=== PATIENT | male | born 1965 | race Two or more races ===

== ENCOUNTER 2019-07-27 18:35 | Emergency (ER) | payer OTHER ==
[~2019-07-27] VITALS: Ht 180.3 cm; Wt 95.3 kg
[2019-07-27 18:49] VITALS: BP 152/99
[2019-07-27] MEDS ORDERED: HYDROCODONE/APAP 5/325MG 1 EACH TABLET ONE (19:08)
--- NOTE | 2019-07-27 19:12 | NUR ---
worsening r hip and bilat knee pain s/p glf 5 days ago. PT AAOX4, VSS. RR EVEN & UNLABORED. DENIES ANY OTHER DISCOMFORT. PT SEEN & EVAL'D BY FELIPE HILL. MEDICATED ORDERED, PT GRAYSON WELL. WILL CONT TO MONITOR.
[2019-07-27] MEDS ORDERED: HYDROCODONE/APAP 5/325MG 1 EACH TABLET PO ONE (19:30)
--- NOTE | 2019-07-27 20:30 | NUR ---
Patient discharged to home in stable condition. Written and verbal after care instructions given. Patient verbalizes understanding of instruction.
[2019-08-01] MEDS ORDERED: TRAM50TA2 PO (11:52)
[2019-08-01] MEDS ORDERED: LEVO500T75 PO (11:52)
[2019-09-05] MEDS ORDERED: PIPE3.379 IV (10:34)
== END 2019-07-27 20:30 | disposition home or self-care (01) ==
LOC: ER 18:36
DX: M25.551 Pain in right hip (principal); Z96.641 Presence of right artificial hip joint; Z59.0 Homelessness; W01.0XXA Fall on same level from slipping, tripping and stumbling without subsequent striking against object, initial encounter; Y93.67 Activity, basketball; Y92.89 Other specified places as the place of occurrence of the external cause; Y99.8 Other external cause status
CPT/HCPCS: 73502

== ENCOUNTER 2019-07-29 03:25 | Emergency (ER) | payer OTHER ==
[~2019-07-29] VITALS: Ht 177.8 cm; Wt 75.3 kg
[2019-07-29 03:48] VITALS: BP 134/76
[2019-07-29] MEDS ORDERED: NAPR-1009 PO (09:00)
[2019-08-01] MEDS ORDERED: TRAM50TA2 PO (11:52)
[2019-08-01] MEDS ORDERED: LEVO500T75 PO (11:52)
== END 2019-07-29 04:18 | disposition home or self-care (01) ==
LOC: ER 03:29
DX: K59.00 Constipation, unspecified (principal); Z96.649 Presence of unspecified artificial hip joint

== ENCOUNTER 2019-07-29 07:45 | Inpatient (IN) | payer OTHER ==
[~2019-07-29] VITALS: Ht 172.7 cm; Wt 93.4 kg
[~2019-07-29 07:45] MED LIST: SORBITOL SOLUTION 30 ML PO ONE
--- NOTE | 2019-07-29 07:50 | NUR ---
CAME IN FOR "ABDOMINAL PAIN, NAUSEA AND VOMITING SINCE THIS MORNING, WAS SEEN HERE THIS MORNING, VOMITING LOTS OF MUCUS, NOTICED SOME RED BLOOD", TO ER BED 9, HOOKED TO MONITOR, CHANGED TO HOSP GOWN, AWAITING MD NICHOLSON.
--- NOTE | 2019-07-29 07:51 | NUR ---
DR KIRAN AT BEDSIDE
[2019-07-29] MEDS ORDERED: LIDOCAINE VISCOUS 2% UD 15 ML UDC MM ONE (08:00)
[2019-07-29] MEDS ORDERED: IV NS 0.9% 1,000 ML BAG IV ONE (08:00)
[2019-07-29] MEDS ORDERED: MAG HYDROX/AL HYDROX/SIMETH 30 ML UDC PO ONE (08:00)
[2019-07-29] MEDS ORDERED: FAMOTIDINE/PF INJ 20 MG/2 ML VIAL IV ONE ×2 (08:00→08:06)
[2019-07-29] MEDS ORDERED: MAG HYDROX/AL HYDROX/SIMETH 30 ML UDC ONE (08:06)
[2019-07-29] MEDS ORDERED: ONDANSETRON HCL/PF 4 MG/2 ML VIAL ONE (08:06)
[2019-07-29] MEDS ORDERED: LIDOCAINE VISCOUS 2% UD 15 ML UDC ONE (08:06)
[2019-07-29 08:09] LABS: BASOPHILS # (AUTO) 0.1 /CMM (0.0-0.2); BASOPHILS % (AUTO) 0.1 % (0.0-2.0); HEMATOCRIT 42 % (39-51); HEMOGLOBIN 13.7 g/dL (13.5-17.5); LYMPHOCYTES # (AUTO) 1.2 /CMM (0.8-4.8); LYMPHOCYTES % (AUTO) 2.3 % (20.0-44.0); MEAN CORPUSCULAR HGB CONC 33 g/dl (31.0-36.0); MEAN CORPUSCULAR VOLUME 93 fL (80-96); MONOCYTES % (AUTO) 8.1 % (2.0-12.0); NEUTROPHILS # (AUTO) 44.2 /CMM (1.8-8.9); NEUTROPHILS % (AUTO) 89.5 % (43.0-81.0); PLATELET COUNT (AUTO) 452 /CMM (150-450); RED BLOOD CELL COUNT(AUTO) 4.48 MIL/uL (4.5-6.0)
[2019-07-29 08:12] LABS: WHITE BLOOD COUNT (AUTO) 49.5 K/uL (4.3-11.0)
[2019-07-29 08:16] LABS: CALCIUM, SERUM 8.7 mg/dL (8.5-10.1); CREATININE 0.9 mg/dL (0.6-1.3); POTASSIUM 4.1 mmol/L (3.5-5.1)
[2019-07-29 08:28] LABS: ALBUMIN 2.5 g/dL (3.4-5.0); BILIRUBIN,DIRECT 1.2 mg/dL (0.0-0.2); BILIRUBIN,TOTAL 1.8 mg/dL (0.2-1.0); TOTAL PROTEIN, SERUM 7.9 g/dL (6.4-8.2)
[2019-07-29 08:28] LABS: BASOPHILS % (AUTO) 0.1 % (0.0-2.0); EOSINOPHILS % (AUTO) 0.5 % (0.0-6.0); HEMATOCRIT 40 % (39-51); HEMOGLOBIN 13.1 g/dL (13.5-17.5); LYMPHOCYTES % (AUTO) 2.1 % (20.0-44.0); MEAN CORPUSCULAR HGB CONC 33 g/dl (31.0-36.0); MEAN CORPUSCULAR VOLUME 94 fL (80-96); MONOCYTES # (AUTO) 4.3 /CMM (0.1-1.30); MONOCYTES % (AUTO) 8.5 % (2.0-12.0); NEUTROPHILS % (AUTO) 88.8 % (43.0-81.0); PLATELET COUNT (AUTO) 420 /CMM (150-450); RED BLOOD CELL COUNT(AUTO) 4.28 MIL/uL (4.5-6.0)
[2019-07-29] MEDS ORDERED: ONDANSETRON HCL/PF 4 MG/2 ML VIAL IV ONE (08:30)
--- NOTE | 2019-07-29 08:30 | NUR ---
WHEELED OUT VIA RNEY FOR CT SCAN
[2019-07-29 08:31] LABS: WHITE BLOOD COUNT (AUTO) 50.6 K/uL (4.3-11.0)
[2019-07-29] MEDS ORDERED: NAPR-1009 PO (09:00)
--- NOTE | 2019-07-29 09:03 | NUR ---
got bed 304
[2019-07-29] MEDS ORDERED: LEVOFLOXACIN 750 MG /D5W 150ML PIGGYBACK IV ONE (09:30)
[2019-07-29 09:31] LABS: BAND % (MANUAL) 2 % (0.0-5.0); EOSINOPHILS % (MANUAL) 1 % (0-4); LYMPHOCYTES % (MANUAL) 4 % (16-48); MONOCYTES % (MANUAL) 5 % (0-11.0); NEUTROPHILS % (MANUAL) 88 (42-76)
--- NOTE | 2019-07-29 09:34 | NUR ---
WHEELED OUT VIA RNEY FOR CT SCAN
--- NOTE | 2019-07-29 09:39 | NUR ---
REPORT GIVEN TO MEGHAN OF MS UN[facility]
[2019-07-29] MEDS ORDERED: LEVOFLOXACIN 750 MG /D5W 150ML 150 ML IV ONE (09:49)
--- NOTE | 2019-07-29 10:31 | NUR ---
DR FUNK AT BEDSIDE
[2019-07-29] MEDS ORDERED: IV NS 0.9% 1,000 ML IV PRN (10:47)
[2019-07-29] MEDS ORDERED: Z GUARD REMEDY 2 OZ OINT TP PRN (11:00)
[2019-07-29] MEDS ORDERED: MAGNESIUM HYDROXIDE 30 ML UDC PO PRN (11:00)
[2019-07-29] MEDS ORDERED: ONDANSETRON HCL/PF 4 MG/2 ML VIAL IVP PRN (11:00)
[2019-07-29] MEDS ORDERED: MAG HYDROX/AL HYDROX/SIMETH 30 ML UDC PO PRN (11:00)
[2019-07-29 11:03] LABS: APPEARANCE,URINE Clear (CLEAR); BILIRUBIN,URINE Negative (NEGATIVE); BLOOD, URINE Negative Ery/uL (NEGATIVE); COLOR,URINE Yellow (YELLOW); KETONES,URINE Negative (NEGATIVE); LEUKOCYTE ESTERASE ,URINE Negative (NEGATIVE); NITRITE, URINE Negative (NEGATIVE); PROTEIN,URINE Negative (NEGATIVE); UGLUCOSE Negative (NEGATIVE)
[2019-07-29 11:09] LABS: BACTERIA,URINE Rare /HPF (None Seen); RBC,URINE NONE SEEN /HPF (0-2); SQUAMOUS EPITHELIAL CELL,UR Few /HPF (None Seen); WBC,URINE NONE SEEN /HPF (0-3)
[2019-07-29 12:00] VITALS: BP 115/71
--- NOTE | 2019-07-29 12:05 | NUR ---
MS [employer] NOTE PATIENT ARRIVED BY SAHHZAD. PATIENT IS AMBULATORY TO BED. PATIENT STATES " I FEEL MUCH BETTER." PATIENT IN NO PAIN AT THIS TIME. PATIENT BREATHING IS EVEN AND UNLABORED. PATIENT IN NO ACUTE DISTRESS. NO SOB NOTED. PATIENT VITAL SIGNS WNL. PATIENT BED IS LOCKED AND IN LOWEST POSITION, CALL LIGHT WITHIN REACH. WILL CONTINUE TO MONITOR. DR. FUNK MADE AWARE AND ORDERS PLACED.
--- NOTE | 2019-07-29 14:45 | NUR ---
MS RN NOTE PATIENT SEEN AND EVALUATED BY DR. RADER. ORDERS TO BE PLACED NPO AFTER MIDNIGHT FOR EGD AND COLONSCOPY TOMORROW. PER MD HE WILL PUT IN ORDERS.
[2019-07-29 16:00] VITALS: BP 101/63
--- NOTE | 2019-07-29 18:29 | NUR ---
MS RN CLOSING NOTE PATIENT IN BED RESTING COMFORTABLY. PATIENT IN NO ACUTE DISTRESS. NO SOB NOTED. PATIENT BREATHING IS EVEN AND UNLABORED. 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 PATIENT IN NO PAIN AT THIS TIME. PATIENT KEPT CLEAN, DRY, AND COMFORTABLE THROUGHOUT SHIFT. PATIENT TO BE NPO AFTER MIDNIGHT PER DR. RADER. CALLED PHARMACY FOR THE [facility], WILL SEND UP SOON MADE AVAILABLE. PATIENT BED IS LOCKED AND IN LOWEST POSITIONED. CALL LIGHT WITHIN REACH. WILL ENDORSE CARE TO PM SHIFT FOR MIKE.
--- NOTE | 2019-07-29 19:20 | NUR ---
MS JOHNSON OPENING NOTES Received patient A/O x4, awake on bed, on RA. Patient denies discomfort at this time. Explained to patient the POC, patient verbalized understanding. Reinforced on the use of Golytely as ordered. Kept on bed clean, dry and comfortable. Call light within easy reach. On fall precautions. Will continue to monitor accordingly. Addendum: 07/30/19 at 06 by ISRAEL EDGE RN ENDORSED TO THE NEXT SHIFT. Addendum: 07/30/19 at 06 by ISRAEL EDGE RN WRONG ENTRY
[2019-07-29 20:00] VITALS: BP 112/65
[2019-07-29] MEDS ORDERED: PEG 3350/NA SULF,BICARB,CL/KCL 4,000 ML BOTTLE PO ONE (20:00)
[2019-07-30] MEDS: MORPHINE SULFATE INJ 2 MG/ML DISP.SYRIN IV PRN ×2 (04:56→09:00)
--- NOTE | 2019-07-30 06:24 | NUR ---
MS RN CLOSING NOTES Patient able to consume the Golytely as ordered. Able to move bowel independently. All nursing needs attended, no new complaints made. Medicated for pain, noted effective. Kept on bed clean, dry and comfortable. Call light within easy reach. Endorsed to the next shift.
[2019-07-30 06:49] LABS: BASOPHILS % (AUTO) 0.1 % (0.0-2.0); EOSINOPHILS % (AUTO) 0.1 % (0.0-6.0); HEMATOCRIT 39 % (39-51); HEMOGLOBIN 12.8 g/dL (13.5-17.5); LYMPHOCYTES # (AUTO) 1.2 /CMM (0.8-4.8); MEAN CORPUSCULAR HGB CONC 33 g/dl (31.0-36.0); MEAN CORPUSCULAR VOLUME 95 fL (80-96); MONOCYTES # (AUTO) 2.4 /CMM (0.1-1.30); NEUTROPHILS # (AUTO) 20.4 /CMM (1.8-8.9); NEUTROPHILS % (AUTO) 84.8 % (43.0-81.0); PLATELET COUNT (AUTO) 418 /CMM (150-450); RED BLOOD CELL COUNT(AUTO) 4.13 MIL/uL (4.5-6.0); WHITE BLOOD COUNT (AUTO) 24.1 K/uL (4.3-11.0)
[2019-07-30 06:56] LABS: CALCIUM, SERUM 8.4 mg/dL (8.5-10.1); CREATININE 0.7 mg/dL (0.6-1.3); MAGNESIUM 2.3 mg/dL (1.8-2.4); PHOSPHORUS 2.9 mg/dL (2.5-4.9); POTASSIUM 4.1 mmol/L (3.5-5.1)
--- NOTE | 2019-07-30 07:47 | NUR ---
MS RN OPENING NOTES Received Patient awake and resting in bed. A/O x 4. Patient in stable condition with no acute distress. Breathing even and unlabored on room air with no respiratory distress. Denies pain. 18g PIV on RAC clean, intact, patent and flushing well with NS running at 75ml/hr. Safety precautions in place. Bed locked and set to lowest position with side rails x 2 up. All needs rendered at this time. Call light within reach. Will continue to monitor.
[2019-07-30 07:56] LABS: BAND % (MANUAL) 5 % (0.0-5.0); LYMPHOCYTES % (MANUAL) 5 % (16-48); MONOCYTES % (MANUAL) 6 % (0-11.0); NEUTROPHILS % (MANUAL) 84 (42-76)
[2019-07-30 08:00] VITALS: BP 115/66
[2019-07-30] MEDS: PANTOPRAZOLE 40 MG VIAL IV SCH (08:51)
[2019-07-30] MEDS: LEVOFLOXACIN 750 MG /D5W 150ML 750 MG in PREMIX 1 EA IV SCH (09:00)
--- NOTE | 2019-07-30 14:30 | NUR ---
MS RN NOTES Patient taken to OR for EGD/Colonoscopy at this time. Patient in stable condition. Will continue to monitor.
[2019-07-30 14:32] LABS: BILIRUBIN,DIRECT 0.3 mg/dL (0.0-0.2); BILIRUBIN,TOTAL 0.6 mg/dL (0.2-1.0); TOTAL PROTEIN, SERUM 7.1 g/dL (6.4-8.2)
[2019-07-30] MEDS ORDERED: MIDAZOLAM HCL 2 MG/2ML VIAL ONE (14:32)
--- NOTE | 2019-07-30 15:55 | NUR ---
MS RN NOTES Patient returned from OR post EGD/Colonoscopy. Patient in stable condition. VS stable with no acute distress. Breathing even and unlabored on room air with no respiratory distress. Provided snacks per Patient request. Will continue to monitor.
[2019-07-30 16:00] VITALS: BP 111/72
--- NOTE | 2019-07-30 16:01 | NUR ---
MS RN NOTES Post orders noted and carried out. Patient in stable condition tolerating regular diet. Will continue to monitor.
--- NOTE | 2019-07-30 18:38 | NUR ---
MS RN CLOSING NOTES Patient awake and resting in bed. A/O x 4. Patient in stable condition with no acute distress. Breathing even and unlabored on room air with no respiratory distress. Denies pain. 18g PIV on RAC clean, intact, patent and flushing well with NS running at 75ml/hr. Safety precautions in place. Bed locked and set to lowest position with side rails x 2 up. All needs rendered at this time. Call light within reach. Will endorse plan of care to oncoming shift.
--- NOTE | 2019-07-30 19:05 | NUR ---
MS RN OPENING NOTES Received patient A/O x4, awake on bed. On RA, no SOB/respiratory distress noted. S/P EDG day 0, patient complaint minimal abdominal pain, provided hot packs per patient request. Discussed to patient the POC, patient verbalized understanding. Kept on bed clean, dry and comfortable. Call light within easy reach. On fall and aspiration precautions. Will continue to monitor accordingly.
[2019-07-30 20:00] VITALS: BP 138/87
[2019-07-30] MEDS: HYDROCODONE/APAP 5/325MG 1 EACH TABLET PO PRN (20:09)
[2019-07-30] MEDS: ZOLPIDEM TARTRATE 5 MG TABLET PO PRN (21:07)
[2019-07-31] MEDS: HYDROCODONE/APAP 5/325MG 1 EACH TABLET PO PRN ×3 (03:00→21:49)
--- NOTE | 2019-07-31 06:44 | NUR ---
MS RN CLOSING NOTES Patient awake on bed, on RA, no SOB/respiratory distress. Patient denies discomfort at this time. Able to take shower independently. Medicated for pain, noted effective. Patient was able to sleep well last light. All nursing needs attended. Kept on bed clean, dry and comfortable. Call light within easy reach. On fall and aspiration precautions. Endorsed to the next shift.
--- NOTE | 2019-07-31 07:23 | NUR ---
RN OPENING NOTE PT WAS RECEIVED IN BED AT LOWEST AND LOCKED POSITION WITH SIDE RAILS UP X2, A/O X4 BREATHING EVEN AND UNLABORED ON RA WITH NO S/S OF ANY DISTRESS OR PAIN AT THIS TIME, IV IS PATENT AND INTACT, AWAITING STOOL CX RESULTS AND PLAN FOR CT ABD WITH BIOPSY TOMORROW PER NIGHT RN, SAFETY PRECAUTIONS IN PLACE, CALL LIGHT IN REACH, WILL MONITOR ACCORDINGLY
[2019-07-31] MEDS: ACETAMINOPHEN 325 MG TABLET PO PRN ×2 (07:43→14:03)
[2019-07-31 08:00] VITALS: BP 115/68
--- NOTE | 2019-07-31 08:00 | NUR ---
RN NOTE TYLENOL GIVEN AT THIS TIME FOR SLIGHT TEMP OF 99.1, WILL CONTINUE TO MONITOR
[2019-07-31] MEDS: PANTOPRAZOLE 40 MG VIAL IV SCH (08:02)
[2019-07-31] MEDS: LEVOFLOXACIN 750 MG /D5W 150ML 750 MG in PREMIX 1 EA IV SCH (08:03)
[2019-07-31 08:59] LABS: BASOPHILS # (AUTO) 0.1 /CMM (0.0-0.2); BASOPHILS % (AUTO) 0.6 % (0.0-2.0); EOSINOPHILS % (AUTO) 0.1 % (0.0-6.0); HEMATOCRIT 35 % (39-51); HEMOGLOBIN 11.6 g/dL (13.5-17.5); LYMPHOCYTES # (AUTO) 1.6 /CMM (0.8-4.8); LYMPHOCYTES % (AUTO) 8.4 % (20.0-44.0); MEAN CORPUSCULAR HGB CONC 33 g/dl (31.0-36.0); MEAN CORPUSCULAR VOLUME 94 fL (80-96); MONOCYTES # (AUTO) 2.2 /CMM (0.1-1.30); MONOCYTES % (AUTO) 11.5 % (2.0-12.0); NEUTROPHILS # (AUTO) 14.9 /CMM (1.8-8.9); NEUTROPHILS % (AUTO) 79.4 % (43.0-81.0); PLATELET COUNT (AUTO) 391 /CMM (150-450); RED BLOOD CELL COUNT(AUTO) 3.72 MIL/uL (4.5-6.0); WHITE BLOOD COUNT (AUTO) 18.8 K/uL (4.3-11.0)
[2019-07-31 09:06] LABS: CREATININE 0.8 mg/dL (0.6-1.3); MAGNESIUM 1.9 mg/dL (1.8-2.4); PHOSPHORUS 3.4 mg/dL (2.5-4.9); POTASSIUM 4.1 mmol/L (3.5-5.1)
[2019-07-31] MEDS: MORPHINE SULFATE INJ 2 MG/ML DISP.SYRIN IV PRN (14:03)
--- NOTE | 2019-07-31 14:13 | NUR ---
RN NOTE TEMP TAKEN AND NOTED TO BE 101.2, COOLING MEASURES IMPLEMENTED AND TYLENOL GIVEN, WILL MONITOR ACCORDINGLY AND RETAKE TEMP IN 30 MINUTES TO 1 HR
--- NOTE | 2019-07-31 15:07 | NUR ---
RN NOTE TEMP WAS RETAKEN AND NOTED TO BE 99.4, WILL CONTINUE TO MONITOR
[2019-07-31] MEDS ORDERED: MAGNESIUM HYDROXIDE 30 ML UDC PO PRN (15:30)
[2019-07-31 16:00] VITALS: BP 144/92
--- NOTE | 2019-07-31 18:18 | NUR ---
RN CLOSING NOTE PT IN BED AT LOWEST AND LOCKED POSITION WITH SIDE RAILS UP X2, A/O X4 BREATHING EVEN AND UNLABORED WITH NO S/S OF ANY DISTRESS OR PAIN, IV IS PATENT AND INTACT, PLAN FOR CT ABD WITH BIOPSY TOMORROW, TEMPERATURE IS NOW WNL, SAFETY PRECAUTIONS IN PLACE, CALL LIGHT IN REACH, ALL NEEDS ATTENDED TO, WILL ENDORSE TO NIGHT RN FOR MIKE.
--- NOTE | 2019-07-31 19:10 | NUR ---
MS RN OPENING NOTES Received patient A/O x4, awake on bed. On RA, no SOB/respiratory distress noted. Discussed to patient the POC, patient verbalized understanding. Kept on bed clean, dry and comfortable. Call light within easy reach. On fall and aspiration precautions. Will continue to monitor accordingly.
[2019-07-31 20:00] VITALS: BP 138/80
[2019-07-31 20:48] VITALS: BP 138/80
[2019-07-31] MEDS: ZOLPIDEM TARTRATE 5 MG TABLET PO PRN (23:30)
[2019-08-01 06:31] LABS: BASOPHILS # (AUTO) 0.1 /CMM (0.0-0.2); BASOPHILS % (AUTO) 0.7 % (0.0-2.0); EOSINOPHILS % (AUTO) 0.3 % (0.0-6.0); HEMATOCRIT 40 % (39-51); LYMPHOCYTES % (AUTO) 14.1 % (20.0-44.0); MEAN CORPUSCULAR HGB CONC 33 g/dl (31.0-36.0); MEAN CORPUSCULAR VOLUME 94 fL (80-96); MONOCYTES # (AUTO) 1.6 /CMM (0.1-1.30); MONOCYTES % (AUTO) 11.4 % (2.0-12.0); NEUTROPHILS # (AUTO) 10.5 /CMM (1.8-8.9); NEUTROPHILS % (AUTO) 73.5 % (43.0-81.0); PLATELET COUNT (AUTO) 434 /CMM (150-450); RED BLOOD CELL COUNT(AUTO) 4.21 MIL/uL (4.5-6.0); WHITE BLOOD COUNT (AUTO) 14.3 K/uL (4.3-11.0)
--- NOTE | 2019-08-01 06:38 | NUR ---
MS RN CLOSING NOTES Patient asleep, on RA, no s/sx of discomfort noted at this time. Due meds given as ordered. All nursing needs attended. No new complaints made. Medicated for pain, noted effective. Kept on bed clean, dry and comfortable. Call light within easy reach. Endorsed to the next shift.
[2019-08-01 06:51] LABS: CALCIUM, SERUM 8.3 mg/dL (8.5-10.1); CREATININE 0.8 mg/dL (0.6-1.3); MAGNESIUM 2.2 mg/dL (1.8-2.4); PHOSPHORUS 3.5 mg/dL (2.5-4.9); POTASSIUM 4.4 mmol/L (3.5-5.1)
[2019-08-01 07:30] LABS: THYROID STIMULATING HORMONE 4.359 uIU/mL (0.358-3.74)
--- NOTE | 2019-08-01 08:00 | NUR ---
MS RN NOTES PATIENT IN BED RESTING NO SOB OR ACUTE DISTRESS NOTED. PATIENT ALERT, ORIENTED X4. DENIES ANY DISCOMFORT. PERIPHERAL IV INTACT PATENT. BED IN LOW LOCKED POSITION. CALL LIGHT WITHIN REACH. WILL CONTINUE TO MONITOR.
[2019-08-01] MEDS: PANTOPRAZOLE 40 MG VIAL IV SCH (09:09)
[2019-08-01] MEDS: LEVOFLOXACIN 750 MG /D5W 150ML 750 MG in PREMIX 1 EA IV SCH (09:10)
[2019-08-01] MEDS: HYDROCODONE/APAP 5/325MG 1 EACH TABLET PO PRN (09:15)
[2019-08-01 09:24] VITALS: BP 119/76
[2019-08-01] MEDS ORDERED: LEVO500T75 PO (11:52)
[2019-08-01] MEDS ORDERED: TRAM50TA2 PO (11:52)
--- NOTE | 2019-08-01 12:29 | NUR ---
MS RN NOTES CALLED [facility] CONFIRMED ELECTRONIC PRESCRIPTION WAS RECEIVED. PER [facility] PRESCRIPTION READY FOR GILL TENDER, PATIENT INFORMED.
--- NOTE | 2019-08-01 13:30 | NUR ---
MS RN NOTES PATIENT DISCHARGED HOME WITH BROTHER. PATIENT ALERT, ORIENTED X4. DISCHARGE EDUCATION PROVIDED TO PATIENT. DISCHARGE PROTOCOL FOLLOWED. PATIENT VERBALIZED UNDERSTANDING. ALL BELONGINGS ACCOUNTED FOR, BELONGING LIST SIGNED. 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 PERIPHERAL IV REMOVED WITH MINIMAL BLEEDING. ID BAND REMOVED. PATIENT TRANSFERRED TO CAR WITH BROTHER AND PATIENT ACCESS REGISTRAR. MD AWARE OF ALL ABNORMAL TESTS AND LABS.
[2019-08-02 09:39] LABS: IMMUNOGLOBULIN A, SERUM 724 mg/dL (90-386); IMMUNOGLOBULIN G, SERUM 2421 mg/dL (700-1600); IMMUNOGLOBULIN M, SERUM 113 mg/dL (20-172)
[2019-08-02 15:09] LABS: *SPE A/G RATIO 0.4 (0.7-1.7); *SPE ALPHA-1-GLOBULIN 0.4 g/dL (0.0-0.4); *SPE ALPHA-2-GLOBULIN 1.1 g/dL (0.4-1.0); *SPE GLOBULIN, TOTAL 4.7 g/dL (2.2-3.9); *SPE M-SPIKE Not Observed g/dL (Not Observed); *SPEGAMMA GLOBULIN 2.2 g/dL (0.4-1.8)
[2019-09-05] MEDS ORDERED: PIPE3.379 IV (10:34)
== END 2019-08-01 13:30 | disposition home or self-care (01) | DRG 254 ==
LOC: ER 07:49 → MED 11:19
PROVIDERS: ADMIT Internal Medicine; ATTEND Internal Medicine
DX: K62.89 Other specified diseases of anus and rectum (principal); I85.10 Secondary esophageal varices without bleeding; E44.0 Moderate protein-calorie malnutrition; K70.9 Alcoholic liver disease, unspecified; E87.1 Hypo-osmolality and hyponatremia; E88.09 Other disorders of plasma-protein metabolism, not elsewhere classified; N30.90 Cystitis, unspecified without hematuria; K74.60 Unspecified cirrhosis of liver; D64.9 Anemia, unspecified; D72.829 Elevated white blood cell count, unspecified; S39.81XA Other specified injuries of abdomen, initial encounter; K64.8 Other hemorrhoids; Z96.641 Presence of right artificial hip joint; E86.1 Hypovolemia; Z68.31 Body mass index [BMI] 31.0-31.9, adult; W18.30XA Fall on same level, unspecified, initial encounter; Y92.89 Other specified places as the place of occurrence of the external cause; K25.9 Gastric ulcer, unspecified as acute or chronic, without hemorrhage or perforation; D73.1 Hypersplenism
CPT/HCPCS: 36415; 71250-TC; 80048-TC; 80076-TC; 81000-TC; 82150-TC; 82728-TC; 82784; 83540-TC; 83690-TC; 83735-TC; 84100-TC; 84155; 84165; 84443-TC; 85025-TC; 85730-TC; 86334; 86706; 86803; 86850-TC; 87045-TC; 87081-TC; 87340; 88305-TC; 88313-TC; 88342; A4216; C9113; G0378; J1956; J2250; J2270; J2405; J2704; J3490; J7030

== ENCOUNTER 2019-08-05 19:42 | Inpatient (IN) | payer OTHER ==
[~2019-08-05] VITALS: Ht 180.3 cm; Wt 92.1 kg
[2019-08-05] VITALS: BP 108/68
[~2019-08-05 19:42] MED LIST changes: +LEVO500T75 PO; -SORBITOL SOLUTION 30 ML PO ONE; +TRAM50TA2 PO
[2019-08-05] MEDS ORDERED: MORPHINE SULFATE INJ 4 MG/ML DISP.SYRIN ONE (20:21)
[2019-08-05 20:30] LABS: BASOPHILS # (AUTO) 0.2 /CMM (0.0-0.2); BASOPHILS % (AUTO) 0.8 % (0.0-2.0); EOSINOPHILS % (AUTO) 0.1 % (0.0-6.0); HEMATOCRIT 38 % (39-51); HEMOGLOBIN 12.6 g/dL (13.5-17.5); LYMPHOCYTES % (AUTO) 7.3 % (20.0-44.0); MEAN CORPUSCULAR HGB CONC 33 g/dl (31.0-36.0); MEAN CORPUSCULAR VOLUME 93 fL (80-96); MONOCYTES # (AUTO) 2.2 /CMM (0.1-1.30); MONOCYTES % (AUTO) 7.8 % (2.0-12.0); NEUTROPHILS # (AUTO) 23.3 /CMM (1.8-8.9); PLATELET COUNT (AUTO) 516 /CMM (150-450); RED BLOOD CELL COUNT(AUTO) 4.12 MIL/uL (4.5-6.0); WHITE BLOOD COUNT (AUTO) 27.7 K/uL (4.3-11.0)
[2019-08-05] MEDS ORDERED: MORPHINE SULFATE INJ 2 MG/ML DISP.SYRIN IV ONE (20:30)
[2019-08-05] MEDS ORDERED: IV NS 0.9% 1,000 ML BAG IV ONE (20:30)
[2019-08-05 20:34] LABS: CALCIUM, SERUM 7.5 mg/dL (8.5-10.1); CREATININE 0.9 mg/dL (0.6-1.3); POTASSIUM 4.6 mmol/L (3.5-5.1)
[2019-08-05 20:40] LABS: BILIRUBIN,DIRECT 0.3 mg/dL (0.0-0.2); BILIRUBIN,TOTAL 0.6 mg/dL (0.2-1.0); TOTAL PROTEIN, SERUM 6.8 g/dL (6.4-8.2)
[2019-08-05] MEDS ORDERED: IV NS 0.9% 250 ML IV ONE (21:14)
[2019-08-05] MEDS ORDERED: CT SWABBABLE VALVE TRANS SET 1 EA INFUS.SET MC ONE (21:14)
[2019-08-05] MEDS ORDERED: IOHEXOL-300 100 ML VIAL IV ONE (21:14)
[2019-08-05] MEDS ORDERED: LEVOFLOXACIN 750 MG /D5W 150ML PIGGYBACK IV ONE (22:30)
[2019-08-05] MEDS ORDERED: LEVOFLOXACIN 750 MG /D5W 150ML 150 ML IV ONE (22:45)
[2019-08-05 23:08] LABS: APPEARANCE,URINE Clear (CLEAR); BILIRUBIN,URINE Negative (NEGATIVE); BLOOD, URINE Negative Ery/uL (NEGATIVE); COLOR,URINE Yellow (YELLOW); KETONES,URINE Negative (NEGATIVE); LEUKOCYTE ESTERASE ,URINE Negative (NEGATIVE); NITRITE, URINE Negative (NEGATIVE); PROTEIN,URINE Negative (NEGATIVE); UGLUCOSE Negative (NEGATIVE); UROBILINOGEN,URINE 0.2 EU/dL (0.2)
[2019-08-05] MEDS ORDERED: ONDANSETRON HCL/PF 4 MG/2 ML VIAL IVP PRN (23:30)
[2019-08-05] MEDS: LEVOFLOXACIN 750 MG /D5W 150ML 750 MG in PREMIX 1 EA IV SCH (23:30)
[2019-08-05] MEDS ORDERED: ACETAMINOPHEN 650 MG/SUPP.RECT RC PRN (23:30)
[2019-08-05 23:45] VITALS: BP 108/68
[2019-08-06] MEDS ORDERED: PIPERACILLIN /TAZOBACTAM 3.375 G in IV D5W 50 ML IV SCH ×2
[2019-08-06 00:05] LABS: APPEARANCE,URINE CLEAR (CLEAR); BILIRUBIN,URINE NEGATIVE (NEGATIVE); BLOOD, URINE NEGATIVE Ery/uL (NEGATIVE); COLOR,URINE YELLOW (YELLOW); KETONES,URINE NEGATIVE (NEGATIVE); LEUKOCYTE ESTERASE ,URINE NEGATIVE (NEGATIVE); NITRITE, URINE NEGATIVE (NEGATIVE); PROTEIN,URINE NEGATIVE (NEGATIVE); UGLUCOSE NEGATIVE (NEGATIVE); UROBILINOGEN,URINE 0.2 EU/dL (0.2)
[2019-08-06] MEDS: IV NS 0.9% 1,000 ML IV SCH ×2 (00:29→14:32)
[2019-08-06] MEDS ORDERED: METRONIDAZOLE 500MG/ NS 100ML 100 ML IV ONE (01:00)
[2019-08-06] MEDS: MORPHINE SULFATE INJ 2 MG/ML DISP.SYRIN IV PRN ×4 (02:29→22:05)
[2019-08-06 04:00] VITALS: BP 119/68
[2019-08-06 04:43] VITALS: BP 119/68
[2019-08-06] MEDS ORDERED: METRONIDAZOLE 500MG/ NS 100ML 100 ML IV SCH ×2 (05:00→07:00)
[2019-08-06 07:11] LABS: THYROID STIMULATING HORMONE 1.722 uIU/mL (0.358-3.74)
[2019-08-06 07:15] LABS: ALBUMIN 1.8 g/dL (3.4-5.0); BILIRUBIN,TOTAL 0.9 mg/dL (0.2-1.0); CALCIUM, SERUM 7.6 mg/dL (8.5-10.1); CREATININE 0.7 mg/dL (0.6-1.3); MAGNESIUM 1.8 mg/dL (1.8-2.4); PHOSPHORUS 2.7 mg/dL (2.5-4.9); POTASSIUM 4.2 mmol/L (3.5-5.1); TOTAL PROTEIN, SERUM 6.5 g/dL (6.4-8.2)
[2019-08-06 07:19] LABS: BASOPHILS # (AUTO) 0.2 /CMM (0.0-0.2); BASOPHILS % (AUTO) 0.8 % (0.0-2.0); EOSINOPHILS % (AUTO) 0.1 % (0.0-6.0); HEMATOCRIT 37 % (39-51); HEMOGLOBIN 12.1 g/dL (13.5-17.5); LYMPHOCYTES # (AUTO) 2.2 /CMM (0.8-4.8); LYMPHOCYTES % (AUTO) 7.8 % (20.0-44.0); MEAN CORPUSCULAR HGB CONC 33 g/dl (31.0-36.0); MEAN CORPUSCULAR VOLUME 94 fL (80-96); MONOCYTES # (AUTO) 2.5 /CMM (0.1-1.30); MONOCYTES % (AUTO) 8.7 % (2.0-12.0); NEUTROPHILS # (AUTO) 23.5 /CMM (1.8-8.9); NEUTROPHILS % (AUTO) 82.6 % (43.0-81.0); PLATELET COUNT (AUTO) 495 /CMM (150-450); RED BLOOD CELL COUNT(AUTO) 3.92 MIL/uL (4.5-6.0); WHITE BLOOD COUNT (AUTO) 28.4 K/uL (4.3-11.0)
[2019-08-06 08:00] VITALS: BP 112/67
[2019-08-06] MEDS: PANTOPRAZOLE 40 MG VIAL IV SCH ×2 (09:10→17:04)
[2019-08-06] MEDS: METRONIDAZOLE 500MG/ NS 100ML 100 ML IV SCH ×2 (09:28→17:05)
[2019-08-06] MEDS ORDERED: LORAZEPAM INJ 2 MG/ML VIAL IV PRN (13:00)
[2019-08-06] MEDS: FOLIC ACID 1 MG TABLET PO SCH (13:22)
[2019-08-06] MEDS: THIAMINE HCL 100 MG TABLET PO SCH (13:22)
[2019-08-06] MEDS: MULTIVITAMINS,THERAGRAN 1 UDTAB TABLET PO SCH (13:22)
[2019-08-06 16:00] VITALS: BP 114/67
[2019-08-06 20:00] VITALS: BP 110/62
[2019-08-06] MEDS: LEVOFLOXACIN 750 MG /D5W 150ML 750 MG in PREMIX 1 EA IV SCH (23:25)
[2019-08-07] MEDS ORDERED: PIPERACILLIN /TAZOBACTAM 3.375 G VIAL IV ONE ×2 (00:26→05:54)
[2019-08-07] MEDS: PIPERACILLIN /TAZOBACTAM 3.375 G in IV D5W 50 ML IV SCH ×2 (00:41→06:24)
[2019-08-07] MEDS: IV NS 0.9% 1,000 ML IV SCH ×2 (02:20→15:30)
[2019-08-07] MEDS ORDERED: HYDROCODONE/APAP 5/325MG 1 EACH TABLET PO PRN (03:00)
[2019-08-07 05:42] LABS: BASOPHILS # (AUTO) 0.1 /CMM (0.0-0.2); BASOPHILS % (AUTO) 0.5 % (0.0-2.0); EOSINOPHILS % (AUTO) 0.3 % (0.0-6.0); HEMATOCRIT 37 % (39-51); HEMOGLOBIN 12.1 g/dL (13.5-17.5); LYMPHOCYTES # (AUTO) 2.2 /CMM (0.8-4.8); LYMPHOCYTES % (AUTO) 11.3 % (20.0-44.0); MEAN CORPUSCULAR HGB CONC 33 g/dl (31.0-36.0); MEAN CORPUSCULAR VOLUME 93 fL (80-96); MONOCYTES # (AUTO) 2.1 /CMM (0.1-1.30); MONOCYTES % (AUTO) 10.5 % (2.0-12.0); NEUTROPHILS # (AUTO) 15.1 /CMM (1.8-8.9); NEUTROPHILS % (AUTO) 77.4 % (43.0-81.0); PLATELET COUNT (AUTO) 511 /CMM (150-450); RED BLOOD CELL COUNT(AUTO) 3.98 MIL/uL (4.5-6.0); WHITE BLOOD COUNT (AUTO) 19.5 K/uL (4.3-11.0)
[2019-08-07 06:38] LABS: CALCIUM, SERUM 8.1 mg/dL (8.5-10.1); CREATININE 0.9 mg/dL (0.6-1.3); POTASSIUM 4.7 mmol/L (3.5-5.1)
[2019-08-07 08:00] VITALS: BP 111/69
[2019-08-07] MEDS: MORPHINE SULFATE INJ 2 MG/ML DISP.SYRIN IV PRN ×3 (09:31→22:49)
[2019-08-07] MEDS: PANTOPRAZOLE 40 MG VIAL IV SCH ×2 (09:37→16:59)
[2019-08-07] MEDS: FOLIC ACID 1 MG TABLET PO SCH (09:38)
[2019-08-07] MEDS: MULTIVITAMINS,THERAGRAN 1 UDTAB TABLET PO SCH (09:38)
[2019-08-07] MEDS: THIAMINE HCL 100 MG TABLET PO SCH (09:38)
[2019-08-07] MEDS: ALBUMIN 25% 25 GM in PREMIX 1 EA IV SCH ×2 (11:37→17:41)
[2019-08-07] MEDS ORDERED: NA PHOS,M-B/NA PHOS,DI-BA 1 EA ENEMA RC PRN (12:00)
[2019-08-07] MEDS ORDERED: PIPERACILLIN /TAZOBACTAM 3.375 G in IV D5W 50 ML IV SCH (12:00)
[2019-08-07] MEDS: PIPERACILLIN /TAZOBACTAM 3.375 G in IV D5W 100 ML IV SCH ×2 (14:07→21:48)
[2019-08-07 20:26] VITALS: BP 117/71
[2019-08-07 20:32] VITALS: BP 117/72
[2019-08-07] MEDS: ZOLPIDEM TARTRATE 5 MG TABLET PO PRN (21:46)
[2019-08-08] MEDS: IV NS 0.9% 1,000 ML IV SCH ×3 (01:19→21:03)
[2019-08-08] MEDS: ALBUMIN 25% 25 GM in PREMIX 1 EA IV SCH (02:13)
[2019-08-08] MEDS: MORPHINE SULFATE INJ 2 MG/ML DISP.SYRIN IV PRN ×4 (04:12→22:20)
[2019-08-08] MEDS: PIPERACILLIN /TAZOBACTAM 3.375 G in IV D5W 100 ML IV SCH ×3 (05:08→21:09)
[2019-08-08 06:47] LABS: BASOPHILS # (AUTO) 0.1 /CMM (0.0-0.2); BASOPHILS % (AUTO) 0.4 % (0.0-2.0); EOSINOPHILS % (AUTO) 0.7 % (0.0-6.0); HEMATOCRIT 36 % (39-51); HEMOGLOBIN 11.9 g/dL (13.5-17.5); LYMPHOCYTES # (AUTO) 2.3 /CMM (0.8-4.8); LYMPHOCYTES % (AUTO) 18.8 % (20.0-44.0); MEAN CORPUSCULAR HGB CONC 33 g/dl (31.0-36.0); MEAN CORPUSCULAR VOLUME 94 fL (80-96); MONOCYTES # (AUTO) 1.1 /CMM (0.1-1.30); MONOCYTES % (AUTO) 8.8 % (2.0-12.0); NEUTROPHILS # (AUTO) 8.7 /CMM (1.8-8.9); NEUTROPHILS % (AUTO) 71.3 % (43.0-81.0); PLATELET COUNT (AUTO) 532 /CMM (150-450); RED BLOOD CELL COUNT(AUTO) 3.89 MIL/uL (4.5-6.0); WHITE BLOOD COUNT (AUTO) 12.3 K/uL (4.3-11.0)
[2019-08-08 06:51] LABS: CALCIUM, SERUM 8.5 mg/dL (8.5-10.1); CREATININE 0.8 mg/dL (0.6-1.3); MAGNESIUM 2.1 mg/dL (1.8-2.4); PHOSPHORUS 3.5 mg/dL (2.5-4.9); POTASSIUM 4.6 mmol/L (3.5-5.1)
[2019-08-08 08:00] VITALS: BP 115/72
[2019-08-08] MEDS: THIAMINE HCL 100 MG TABLET PO SCH (09:28)
[2019-08-08] MEDS: MULTIVITAMINS,THERAGRAN 1 UDTAB TABLET PO SCH (09:28)
[2019-08-08] MEDS: FOLIC ACID 1 MG TABLET PO SCH (09:28)
[2019-08-08] MEDS: PANTOPRAZOLE 40 MG VIAL IV SCH ×2 (09:28→17:00)
[2019-08-08 14:11] LABS: HIV SCRN 4G wRFX Non Reactive (Non Reactive)
[2019-08-08 16:00] VITALS: BP 110/65
[2019-08-08 20:00] VITALS: BP 104/63
[2019-08-08] MEDS: ZOLPIDEM TARTRATE 5 MG TABLET PO PRN (21:19)
[2019-08-08 21:50] VITALS: BP 104/63
[2019-08-09] MEDS: MORPHINE SULFATE INJ 2 MG/ML DISP.SYRIN IV PRN ×2 (04:36→23:11)
[2019-08-09] MEDS: PIPERACILLIN /TAZOBACTAM 3.375 G in IV D5W 100 ML IV SCH ×3 (05:07→21:12)
[2019-08-09 06:11] LABS: BASOPHILS # (AUTO) 0.2 /CMM (0.0-0.2); BASOPHILS % (AUTO) 1.5 % (0.0-2.0); EOSINOPHILS % (AUTO) 1.2 % (0.0-6.0); HEMATOCRIT 39 % (39-51); HEMOGLOBIN 13.1 g/dL (13.5-17.5); LYMPHOCYTES # (AUTO) 2.6 /CMM (0.8-4.8); LYMPHOCYTES % (AUTO) 24.2 % (20.0-44.0); MEAN CORPUSCULAR HGB CONC 34 g/dl (31.0-36.0); MEAN CORPUSCULAR VOLUME 93 fL (80-96); MONOCYTES % (AUTO) 9.4 % (2.0-12.0); NEUTROPHILS # (AUTO) 6.7 /CMM (1.8-8.9); NEUTROPHILS % (AUTO) 63.7 % (43.0-81.0); PLATELET COUNT (AUTO) 589 /CMM (150-450); RED BLOOD CELL COUNT(AUTO) 4.19 MIL/uL (4.5-6.0); WHITE BLOOD COUNT (AUTO) 10.5 K/uL (4.3-11.0)
[2019-08-09 06:32] LABS: CREATININE 0.8 mg/dL (0.6-1.3); POTASSIUM 4.9 mmol/L (3.5-5.1)
[2019-08-09 08:00] VITALS: BP 103/65
[2019-08-09] MEDS: FOLIC ACID 1 MG TABLET PO SCH (09:06)
[2019-08-09] MEDS: THIAMINE HCL 100 MG TABLET PO SCH (09:06)
[2019-08-09] MEDS: MULTIVITAMINS,THERAGRAN 1 UDTAB TABLET PO SCH (09:06)
[2019-08-09] MEDS: PANTOPRAZOLE 40 MG VIAL IV SCH ×2 (09:06→19:18)
[2019-08-09] MEDS ORDERED: IOHEXOL-300 100 ML VIAL IV ONE (09:10)
[2019-08-09] MEDS ORDERED: IV NS 0.9% 250 ML IV ONE (09:10)
[2019-08-09 16:00] VITALS: BP 108/70
[2019-08-09 20:00] VITALS: BP 123/72
[2019-08-10] MEDS: ZOLPIDEM TARTRATE 5 MG TABLET PO PRN ×2 (00:26→23:37)
[2019-08-10] MEDS: IV NS 0.9% 1,000 ML IV SCH (05:56)
[2019-08-10] MEDS: PIPERACILLIN /TAZOBACTAM 3.375 G in IV D5W 100 ML IV SCH ×3 (05:56→21:16)
[2019-08-10] MEDS: MORPHINE SULFATE INJ 2 MG/ML DISP.SYRIN IV PRN ×4 (05:57→22:18)
[2019-08-10 06:30] LABS: BASOPHILS # (AUTO) 0.1 /CMM (0.0-0.2); BASOPHILS % (AUTO) 0.6 % (0.0-2.0); EOSINOPHILS % (AUTO) 1.2 % (0.0-6.0); HEMATOCRIT 40 % (39-51); HEMOGLOBIN 13.3 g/dL (13.5-17.5); LYMPHOCYTES # (AUTO) 2.4 /CMM (0.8-4.8); LYMPHOCYTES % (AUTO) 25.1 % (20.0-44.0); MEAN CORPUSCULAR HGB CONC 33 g/dl (31.0-36.0); MEAN CORPUSCULAR VOLUME 94 fL (80-96); MONOCYTES # (AUTO) 0.9 /CMM (0.1-1.30); MONOCYTES % (AUTO) 8.9 % (2.0-12.0); NEUTROPHILS # (AUTO) 6.2 /CMM (1.8-8.9); NEUTROPHILS % (AUTO) 64.2 % (43.0-81.0); PLATELET COUNT (AUTO) 560 /CMM (150-450); RED BLOOD CELL COUNT(AUTO) 4.27 MIL/uL (4.5-6.0); WHITE BLOOD COUNT (AUTO) 9.6 K/uL (4.3-11.0)
[2019-08-10 06:31] LABS: CALCIUM, SERUM 8.8 mg/dL (8.5-10.1); CREATININE 0.9 mg/dL (0.6-1.3); POTASSIUM 4.8 mmol/L (3.5-5.1)
[2019-08-10] MEDS: THIAMINE HCL 100 MG TABLET PO SCH (10:12)
[2019-08-10] MEDS: PANTOPRAZOLE 40 MG VIAL IV SCH ×2 (10:12→17:31)
[2019-08-10] MEDS: MULTIVITAMINS,THERAGRAN 1 UDTAB TABLET PO SCH (10:13)
[2019-08-10] MEDS: FOLIC ACID 1 MG TABLET PO SCH (10:13)
[2019-08-10 19:30] VITALS: BP 91/60
[2019-08-10 20:00] VITALS: BP 91/60
[2019-08-11] MEDS: MORPHINE SULFATE INJ 2 MG/ML DISP.SYRIN IV PRN ×4 (03:46→21:19)
[2019-08-11] MEDS: PIPERACILLIN /TAZOBACTAM 3.375 G in IV D5W 100 ML IV SCH ×3 (05:14→21:19)
[2019-08-11] MEDS: IV NS 0.9% 1,000 ML IV SCH (06:20)
[2019-08-11 06:27] LABS: BASOPHILS # (AUTO) 0.1 /CMM (0.0-0.2); BASOPHILS % (AUTO) 0.6 % (0.0-2.0); EOSINOPHILS % (AUTO) 1.7 % (0.0-6.0); HEMATOCRIT 39 % (39-51); HEMOGLOBIN 12.9 g/dL (13.5-17.5); LYMPHOCYTES # (AUTO) 2.6 /CMM (0.8-4.8); LYMPHOCYTES % (AUTO) 27.6 % (20.0-44.0); MEAN CORPUSCULAR HGB CONC 33 g/dl (31.0-36.0); MEAN CORPUSCULAR VOLUME 94 fL (80-96); MONOCYTES # (AUTO) 0.9 /CMM (0.1-1.30); MONOCYTES % (AUTO) 9.9 % (2.0-12.0); NEUTROPHILS # (AUTO) 5.7 /CMM (1.8-8.9); NEUTROPHILS % (AUTO) 60.2 % (43.0-81.0); PLATELET COUNT (AUTO) 562 /CMM (150-450); RED BLOOD CELL COUNT(AUTO) 4.19 MIL/uL (4.5-6.0); WHITE BLOOD COUNT (AUTO) 9.4 K/uL (4.3-11.0)
[2019-08-11 07:06] LABS: CREATININE 0.9 mg/dL (0.6-1.3); POTASSIUM 5.2 mmol/L (3.5-5.1)
[2019-08-11] MEDS ORDERED: SODIUM POLYSTYRENE SULFONATE 15 G/60 ML BOTTLE PO ONE (07:30)
[2019-08-11 07:54] VITALS: BP 91/58
[2019-08-11] MEDS: PANTOPRAZOLE 40 MG VIAL IV SCH ×2 (08:46→17:45)
[2019-08-11] MEDS: MULTIVITAMINS,THERAGRAN 1 UDTAB TABLET PO SCH (08:47)
[2019-08-11] MEDS: THIAMINE HCL 100 MG TABLET PO SCH (08:47)
[2019-08-11] MEDS: FOLIC ACID 1 MG TABLET PO SCH (08:49)
[2019-08-11] MEDS: IV NS 0.9% 1,000 ML IV PRN (09:01)
[2019-08-11 16:00] VITALS: BP 95/63
[2019-08-11 19:30] VITALS: BP 111/65
[2019-08-11 20:00] VITALS: BP 111/65
[2019-08-11] MEDS: ZOLPIDEM TARTRATE 5 MG TABLET PO PRN (22:32)
[2019-08-12] MEDS: PIPERACILLIN /TAZOBACTAM 3.375 G in IV D5W 100 ML IV SCH ×3 (05:00→21:28)
[2019-08-12 07:03] LABS: BASOPHILS # (AUTO) 0.1 /CMM (0.0-0.2); BASOPHILS % (AUTO) 1.3 % (0.0-2.0); HEMATOCRIT 38 % (39-51); HEMOGLOBIN 12.7 g/dL (13.5-17.5); LYMPHOCYTES # (AUTO) 2.3 /CMM (0.8-4.8); LYMPHOCYTES % (AUTO) 29.8 % (20.0-44.0); MEAN CORPUSCULAR HGB CONC 34 g/dl (31.0-36.0); MEAN CORPUSCULAR VOLUME 94 fL (80-96); MONOCYTES # (AUTO) 0.8 /CMM (0.1-1.30); MONOCYTES % (AUTO) 10.6 % (2.0-12.0); NEUTROPHILS # (AUTO) 4.3 /CMM (1.8-8.9); NEUTROPHILS % (AUTO) 56.3 % (43.0-81.0); PLATELET COUNT (AUTO) 517 /CMM (150-450); RED BLOOD CELL COUNT(AUTO) 4.02 MIL/uL (4.5-6.0); WHITE BLOOD COUNT (AUTO) 7.6 K/uL (4.3-11.0)
[2019-08-12 07:30] LABS: CALCIUM, SERUM 8.4 mg/dL (8.5-10.1); CREATININE 0.8 mg/dL (0.6-1.3); POTASSIUM 4.4 mmol/L (3.5-5.1)
[2019-08-12 08:00] VITALS: BP 101/64
[2019-08-12] MEDS: MORPHINE SULFATE INJ 2 MG/ML DISP.SYRIN IV PRN ×2 (08:29→17:47)
[2019-08-12] MEDS: FOLIC ACID 1 MG TABLET PO SCH (09:00)
[2019-08-12] MEDS: MULTIVITAMINS,THERAGRAN 1 UDTAB TABLET PO SCH (09:00)
[2019-08-12] MEDS: THIAMINE HCL 100 MG TABLET PO SCH (09:00)
[2019-08-12] MEDS ORDERED: IOHEXOL-300 100 ML VIAL IV ONE (09:25)
[2019-08-12] MEDS ORDERED: IV NS 0.9% 250 ML IV ONE (09:25)
[2019-08-12] MEDS: PANTOPRAZOLE 40 MG VIAL IV SCH ×2 (09:25→16:43)
[2019-08-12] MEDS ORDERED: CT SWABBABLE VALVE TRANS SET 1 EA INFUS.SET MC ONE (09:26)
[2019-08-12 16:00] VITALS: BP 106/68
[2019-08-12 20:00] VITALS: BP 115/68
[2019-08-12 22:00] VITALS: BP 115/68
[2019-08-12] MEDS: ZOLPIDEM TARTRATE 5 MG TABLET PO PRN (22:58)
[2019-08-13] MEDS: MORPHINE SULFATE INJ 2 MG/ML DISP.SYRIN IV PRN ×2 (04:13→09:27)
[2019-08-13] MEDS: IV NS 0.9% 1,000 ML IV PRN (05:08)
[2019-08-13] MEDS: PIPERACILLIN /TAZOBACTAM 3.375 G in IV D5W 100 ML IV SCH (05:08)
[2019-08-13 06:54] LABS: BASOPHILS # (AUTO) 0.1 /CMM (0.0-0.2); BASOPHILS % (AUTO) 1.1 % (0.0-2.0); EOSINOPHILS % (AUTO) 2.2 % (0.0-6.0); HEMATOCRIT 38 % (39-51); HEMOGLOBIN 12.5 g/dL (13.5-17.5); LYMPHOCYTES # (AUTO) 2.3 /CMM (0.8-4.8); LYMPHOCYTES % (AUTO) 34.7 % (20.0-44.0); MEAN CORPUSCULAR HGB CONC 33 g/dl (31.0-36.0); MEAN CORPUSCULAR VOLUME 93 fL (80-96); MONOCYTES # (AUTO) 0.8 /CMM (0.1-1.30); MONOCYTES % (AUTO) 12.1 % (2.0-12.0); NEUTROPHILS # (AUTO) 3.3 /CMM (1.8-8.9); NEUTROPHILS % (AUTO) 49.9 % (43.0-81.0); PLATELET COUNT (AUTO) 434 /CMM (150-450); RED BLOOD CELL COUNT(AUTO) 4.04 MIL/uL (4.5-6.0); WHITE BLOOD COUNT (AUTO) 6.6 K/uL (4.3-11.0)
[2019-08-13 06:58] LABS: CALCIUM, SERUM 8.7 mg/dL (8.5-10.1); CREATININE 0.8 mg/dL (0.6-1.3); POTASSIUM 4.6 mmol/L (3.5-5.1)
[2019-08-13 08:00] VITALS: BP 112/68
[2019-08-13] MEDS: THIAMINE HCL 100 MG TABLET PO SCH (09:26)
[2019-08-13] MEDS: PANTOPRAZOLE 40 MG VIAL IV SCH (09:26)
[2019-08-13] MEDS: MULTIVITAMINS,THERAGRAN 1 UDTAB TABLET PO SCH (09:26)
[2019-08-13] MEDS: FOLIC ACID 1 MG TABLET PO SCH (09:27)
[2019-08-13] MEDS ORDERED: PIPE3.379 IV (11:22)
== END 2019-08-13 14:00 | disposition home health service (06) | DRG 720 ==
LOC: ER 19:46 → MED 22:54 → TELE 23:37 → MED 08-06 11:06
PROVIDERS: ADMIT Registered Nurse; ATTEND Registered Nurse
DX: A41.9 Sepsis, unspecified organism (principal); E43 Unspecified severe protein-calorie malnutrition; I85.00 Esophageal varices without bleeding; E87.1 Hypo-osmolality and hyponatremia; E87.5 Hyperkalemia; K57.92 Diverticulitis of intestine, part unspecified, without perforation or abscess without bleeding; K74.60 Unspecified cirrhosis of liver; D63.8 Anemia in other chronic diseases classified elsewhere; K64.8 Other hemorrhoids; K61.1 Rectal abscess; R65.20 Severe sepsis without septic shock; K25.9 Gastric ulcer, unspecified as acute or chronic, without hemorrhage or perforation; N30.80 Other cystitis without hematuria; Z96.641 Presence of right artificial hip joint; Z87.11 Personal history of peptic ulcer disease; Z91.19 Patient's noncompliance with other medical treatment and regimen; Z83.3 Family history of diabetes mellitus; Z59.0 Homelessness; M51.37 Other intervertebral disc degeneration, lumbosacral region; K59.00 Constipation, unspecified; Z79.899 Other long term (current) drug therapy; K52.9 Noninfective gastroenteritis and colitis, unspecified; H26.9 Unspecified cataract; F10.10 Alcohol abuse, uncomplicated; E66.9 Obesity, unspecified; Z68.28 Body mass index [BMI] 28.0-28.9, adult
CPT/HCPCS: 36415; 80048-TC; 80053-TC; 80061-TC; 80074; 80076-TC; 81000-TC; 83605-TC; 83735-TC; 84100-TC; 84443-TC; 85025-TC; 85730-TC; 87040-TC; 87081-TC; 87086-TC; A4216; C9113; G0378; J1956; J2270; J2543; J3490; J7030; J7042; J7050; J7060; P9047; Q9967

== ENCOUNTER 2019-08-31 23:25 | Inpatient (IN) | payer OTHER ==
[~2019-08-31] VITALS: Ht 180.3 cm; Wt 93.6 kg
[~2019-08-31 23:25] MED LIST changes: -LEVO500T75 PO; +PIPE3.379 IV; -TRAM50TA2 PO
[2019-09-01 00:29] LABS: CALCIUM, SERUM 8.6 mg/dL (8.5-10.1); CREATININE 0.7 mg/dL (0.6-1.3); POTASSIUM 3.9 mmol/L (3.5-5.1)
[2019-09-01] MEDS ORDERED: KETOROLAC TROMETHAMINE INJ 30 MG/ML VIAL IV ONE (00:30)
[2019-09-01] MEDS ORDERED: TDAP [DIPH/PERTUSSIS/TET] 0.5 ML VIAL IM ONE (00:30)
[2019-09-01] MEDS ORDERED: MORPHINE SULFATE INJ 2 MG/ML DISP.SYRIN IV ONE (00:30)
[2019-09-01] MEDS ORDERED: IOHEXOL-300 100 ML VIAL IV ONE (00:42)
[2019-09-01] MEDS ORDERED: IV NS 0.9% 250 ML IV ONE (00:42)
[2019-09-01] MEDS ORDERED: CT SWABBABLE VALVE TRANS SET 1 EA INFUS.SET MC ONE (00:42)
[2019-09-01] MEDS ORDERED: PIPERACILLIN /TAZOBACTAM 3.375 G VIAL IV ONE ×2 (02:52→05:24)
[2019-09-01] MEDS ORDERED: PIPERACILLIN /TAZOBACTAM 3.375 G in IV D5W 50 ML IV ONE (03:00)
[2019-09-01 03:07] LABS: BASOPHILS # (AUTO) 0.1 /CMM (0.0-0.2); BASOPHILS % (AUTO) 1.1 % (0.0-2.0); EOSINOPHILS % (AUTO) 2.2 % (0.0-6.0); HEMATOCRIT 36 % (39-51); HEMOGLOBIN 12.1 g/dL (13.5-17.5); LYMPHOCYTES # (AUTO) 2.5 /CMM (0.8-4.8); LYMPHOCYTES % (AUTO) 49.1 % (20.0-44.0); MEAN CORPUSCULAR HGB CONC 33 g/dl (31.0-36.0); MEAN CORPUSCULAR VOLUME 92 fL (80-96); MONOCYTES # (AUTO) 0.6 /CMM (0.1-1.30); MONOCYTES % (AUTO) 12.3 % (2.0-12.0); NEUTROPHILS # (AUTO) 1.8 /CMM (1.8-8.9); NEUTROPHILS % (AUTO) 35.3 % (43.0-81.0); PLATELET COUNT (AUTO) 178 /CMM (150-450); RED BLOOD CELL COUNT(AUTO) 3.97 MIL/uL (4.5-6.0); WHITE BLOOD COUNT (AUTO) 5.2 K/uL (4.3-11.0)
[2019-09-01 03:17] LABS: APPEARANCE,URINE CLEAR (CLEAR); BILIRUBIN,URINE NEGATIVE (NEGATIVE); BLOOD, URINE NEGATIVE Ery/uL (NEGATIVE); COLOR,URINE YELLOW (YELLOW); KETONES,URINE NEGATIVE (NEGATIVE); LEUKOCYTE ESTERASE ,URINE NEGATIVE (NEGATIVE); NITRITE, URINE NEGATIVE (NEGATIVE); PH,URINE 7.5 (5.0-8.0); PROTEIN,URINE NEGATIVE (NEGATIVE); UGLUCOSE NEGATIVE (NEGATIVE); UROBILINOGEN,URINE 0.2 EU/dL (0.2)
[2019-09-01] MEDS ORDERED: ONDANSETRON HCL/PF 4 MG/2 ML VIAL IVP PRN (03:30)
[2019-09-01] MEDS ORDERED: MAG HYDROX/AL HYDROX/SIMETH 30 ML UDC PO PRN (03:30)
[2019-09-01] MEDS ORDERED: ACETAMINOPHEN 325 MG TABLET PO PRN (03:30)
[2019-09-01] MEDS ORDERED: MAGNESIUM HYDROXIDE 30 ML UDC PO PRN (03:30)
[2019-09-01] MEDS ORDERED: Z GUARD REMEDY 2 OZ OINT TP PRN (03:30)
[2019-09-01 04:15] VITALS: BP 108/70
[2019-09-01] MEDS: IV 1/2NS 1000 ML 1,000 ML IV PRN (05:07)
[2019-09-01] MEDS ORDERED: PIPERACILLIN /TAZOBACTAM 3.375 G in IV D5W 50 ML IV SCH (06:00)
[2019-09-01 08:00] VITALS: BP 133/85
[2019-09-01] MEDS: PIPERACILLIN /TAZOBACTAM 3.375 G in IV D5W 100 ML IV SCH ×2 (11:25→20:17)
[2019-09-01 16:00] VITALS: BP 127/79
[2019-09-01 20:00] VITALS: BP 138/89
[2019-09-01 22:00] VITALS: BP 138/89
[2019-09-02] MEDS: IV 1/2NS 1000 ML 1,000 ML IV PRN (03:43)
[2019-09-02] MEDS: PIPERACILLIN /TAZOBACTAM 3.375 G in IV D5W 100 ML IV SCH ×3 (03:43→20:23)
[2019-09-02 06:43] LABS: BASOPHILS % (AUTO) 0.7 % (0.0-2.0); EOSINOPHILS % (AUTO) 4.3 % (0.0-6.0); HEMATOCRIT 40 % (39-51); HEMOGLOBIN 13.2 g/dL (13.5-17.5); LYMPHOCYTES # (AUTO) 2.2 /CMM (0.8-4.8); LYMPHOCYTES % (AUTO) 36.6 % (20.0-44.0); MEAN CORPUSCULAR HGB CONC 33 g/dl (31.0-36.0); MEAN CORPUSCULAR VOLUME 92 fL (80-96); MONOCYTES # (AUTO) 0.7 /CMM (0.1-1.30); MONOCYTES % (AUTO) 12.3 % (2.0-12.0); NEUTROPHILS # (AUTO) 2.8 /CMM (1.8-8.9); NEUTROPHILS % (AUTO) 46.1 % (43.0-81.0); PLATELET COUNT (AUTO) 194 /CMM (150-450); RED BLOOD CELL COUNT(AUTO) 4.33 MIL/uL (4.5-6.0)
[2019-09-02 07:23] LABS: BILIRUBIN,TOTAL 0.9 mg/dL (0.2-1.0); CALCIUM, SERUM 9.3 mg/dL (8.5-10.1); CREATININE 0.7 mg/dL (0.6-1.3); MAGNESIUM 1.9 mg/dL (1.8-2.4); PHOSPHORUS 4.2 mg/dL (2.5-4.9); POTASSIUM 4.4 mmol/L (3.5-5.1); TOTAL PROTEIN, SERUM 7.4 g/dL (6.4-8.2)
[2019-09-02 08:00] VITALS: BP 129/80
[2019-09-02] MEDS: DOCUSATE SODIUM 100 MG CAPSULE PO SCH ×2 (08:51→17:19)
[2019-09-02] MEDS: HYDROCODONE/APAP 5/325MG 1 EACH TABLET PO PRN ×2 (08:54→22:21)
[2019-09-02] MEDS ORDERED: BISACODYL (5 MG) 5 MG TABLET.DR PO ONE (09:00)
[2019-09-02 16:00] VITALS: BP_SYST 103; BP_SYST 107; BP_DIAS 81
[2019-09-02 20:00] VITALS: BP 132/83
[2019-09-03] MEDS: PIPERACILLIN /TAZOBACTAM 3.375 G in IV D5W 100 ML IV SCH ×3 (04:12→20:22)
[2019-09-03 08:00] VITALS: BP 117/79
[2019-09-03 08:41] LABS: BASOPHILS # (AUTO) 0.1 /CMM (0.0-0.2); BASOPHILS % (AUTO) 1.1 % (0.0-2.0); CALCIUM, SERUM 8.8 mg/dL (8.5-10.1); CREATININE 0.7 mg/dL (0.6-1.3); EOSINOPHILS % (AUTO) 4.7 % (0.0-6.0); HEMATOCRIT 41 % (39-51); HEMOGLOBIN 13.4 g/dL (13.5-17.5); LYMPHOCYTES # (AUTO) 2.5 /CMM (0.8-4.8); LYMPHOCYTES % (AUTO) 37.2 % (20.0-44.0); MEAN CORPUSCULAR HGB CONC 33 g/dl (31.0-36.0); MEAN CORPUSCULAR VOLUME 93 fL (80-96); MONOCYTES # (AUTO) 0.8 /CMM (0.1-1.30); MONOCYTES % (AUTO) 11.9 % (2.0-12.0); NEUTROPHILS # (AUTO) 3.1 /CMM (1.8-8.9); NEUTROPHILS % (AUTO) 45.1 % (43.0-81.0); PLATELET COUNT (AUTO) 191 /CMM (150-450); POTASSIUM 4.6 mmol/L (3.5-5.1); RED BLOOD CELL COUNT(AUTO) 4.37 MIL/uL (4.5-6.0); WHITE BLOOD COUNT (AUTO) 6.8 K/uL (4.3-11.0)
[2019-09-03] MEDS: DOCUSATE SODIUM 100 MG CAPSULE PO SCH ×2 (08:51→17:48)
[2019-09-03 16:00] VITALS: BP 113/82
[2019-09-03] MEDS: IV 1/2NS 1000 ML 1,000 ML IV PRN (17:48)
[2019-09-03 19:30] VITALS: BP 129/85
[2019-09-03 20:00] VITALS: BP 129/85
[2019-09-03] MEDS: HYDROCODONE/APAP 5/325MG 1 EACH TABLET PO PRN (22:31)
[2019-09-04] MEDS: PIPERACILLIN /TAZOBACTAM 3.375 G in IV D5W 100 ML IV SCH ×3 (03:27→20:42)
[2019-09-04 07:12] LABS: CALCIUM, SERUM 9.2 mg/dL (8.5-10.1); CREATININE 0.8 mg/dL (0.6-1.3)
[2019-09-04 07:22] LABS: BASOPHILS % (AUTO) 0.5 % (0.0-2.0); EOSINOPHILS % (AUTO) 4.9 % (0.0-6.0); HEMATOCRIT 41 % (39-51); HEMOGLOBIN 13.6 g/dL (13.5-17.5); LYMPHOCYTES # (AUTO) 2.5 /CMM (0.8-4.8); LYMPHOCYTES % (AUTO) 36.3 % (20.0-44.0); MEAN CORPUSCULAR HGB CONC 33 g/dl (31.0-36.0); MEAN CORPUSCULAR VOLUME 94 fL (80-96); MONOCYTES # (AUTO) 0.9 /CMM (0.1-1.30); NEUTROPHILS % (AUTO) 44.3 % (43.0-81.0); PLATELET COUNT (AUTO) 193 /CMM (150-450); RED BLOOD CELL COUNT(AUTO) 4.38 MIL/uL (4.5-6.0); WHITE BLOOD COUNT (AUTO) 6.8 K/uL (4.3-11.0)
[2019-09-04 08:00] VITALS: BP 126/80
[2019-09-04] MEDS: DOCUSATE SODIUM 100 MG CAPSULE PO SCH ×2 (08:38→16:01)
[2019-09-04] MEDS: HYDROCODONE/APAP 5/325MG 1 EACH TABLET PO PRN ×2 (08:38→20:51)
[2019-09-04 16:00] VITALS: BP 106/67
[2019-09-04 19:30] VITALS: BP 105/69
[2019-09-04 20:26] VITALS: BP 105/69
[2019-09-05] MEDS: HYDROCODONE/APAP 5/325MG 1 EACH TABLET PO PRN (04:07)
[2019-09-05] MEDS: PIPERACILLIN /TAZOBACTAM 3.375 G in IV D5W 100 ML IV SCH ×2 (04:08→11:59)
[2019-09-05 07:32] LABS: BASOPHILS % (AUTO) 0.5 % (0.0-2.0); EOSINOPHILS % (AUTO) 3.6 % (0.0-6.0); HEMATOCRIT 39 % (39-51); HEMOGLOBIN 12.9 g/dL (13.5-17.5); LYMPHOCYTES # (AUTO) 2.3 /CMM (0.8-4.8); LYMPHOCYTES % (AUTO) 28.2 % (20.0-44.0); MEAN CORPUSCULAR HGB CONC 34 g/dl (31.0-36.0); MEAN CORPUSCULAR VOLUME 93 fL (80-96); MONOCYTES % (AUTO) 12.5 % (2.0-12.0); NEUTROPHILS # (AUTO) 4.4 /CMM (1.8-8.9); NEUTROPHILS % (AUTO) 55.2 % (43.0-81.0); PLATELET COUNT (AUTO) 170 /CMM (150-450); RED BLOOD CELL COUNT(AUTO) 4.15 MIL/uL (4.5-6.0)
[2019-09-05 07:39] LABS: CALCIUM, SERUM 8.8 mg/dL (8.5-10.1); CREATININE 0.7 mg/dL (0.6-1.3); POTASSIUM 4.3 mmol/L (3.5-5.1)
[2019-09-05] MEDS: DOCUSATE SODIUM 100 MG CAPSULE PO SCH (09:13)
[2019-09-05] MEDS ORDERED: PIPE3.379 IV (10:34)
== END 2019-09-05 17:15 | disposition home health service (06) | DRG 254 ==
LOC: ER 23:29 → MEDSG2 09-01 03:38 → UNDOADMIN 09-01 03:38 → TELE 09-01 04:01 → MED 09-01 08:50
PROVIDERS: ADMIT Nurse Practitioner Acute Care; ATTEND Nurse Practitioner Acute Care
PROC: 05H633Z Insertion of Infusion Device into Left Subclavian Vein, Percutaneous Approach (ICD-10-PCS; principal; 2019-09-05)
DX: K62.89 Other specified diseases of anus and rectum (principal); L02.212 Cutaneous abscess of back [any part, except buttock and flank]; K74.60 Unspecified cirrhosis of liver; N30.90 Cystitis, unspecified without hematuria; D63.8 Anemia in other chronic diseases classified elsewhere; K59.00 Constipation, unspecified; Z96.641 Presence of right artificial hip joint; Z59.0 Homelessness; H26.9 Unspecified cataract; Z91.19 Patient's noncompliance with other medical treatment and regimen; Z87.11 Personal history of peptic ulcer disease; M19.90 Unspecified osteoarthritis, unspecified site; K64.8 Other hemorrhoids
CPT/HCPCS: 36415; 80048-TC; 80053-TC; 80061-TC; 81000-TC; 83735-TC; 84100-TC; 85025-TC; 85610-TC; 85730-TC; 87040-TC; 87081-TC; G0378; J2543; J3490; J7050; J7060; Q9967

== ENCOUNTER 2019-10-06 21:11 | Emergency (ER) | payer OTHER ==
[~2019-10-06] VITALS: Ht 180.3 cm; Wt 99.8 kg
--- NOTE | 2019-10-06 21:15 | NUR ---
PT CAME INTO THE ED C/O " I HAVE ABSCESS ON MY BLADDER AND DIDNT FINISH MY ANTIBIOTICS". DX W/ BLADDER INFXN LAST 07/2019. IV 18 G LFA NOTED FOR 1 MONTH. PT UNABLE TO RECALL ANTIBIOTICS. PT AAOX4, NO ACUTE DISTRESS NOTED AT THIS TIME. AWAITING FOR MD NICHOLSON
[2019-10-06] MEDS ORDERED: ONDANSETRON HCL/PF 4 MG/2 ML VIAL ONE (21:42)
[2019-10-06] MEDS ORDERED: MORPHINE SULFATE INJ 4 MG/ML DISP.SYRIN ONE (21:42)
[2019-10-06] MEDS ORDERED: IV NS 0.9% 1,000 ML BAG IV ONE (22:00)
[2019-10-06] MEDS ORDERED: ONDANSETRON HCL/PF 4 MG/2 ML VIAL IVP ONE (22:00)
[2019-10-06] MEDS ORDERED: MORPHINE SULFATE INJ 2 MG/ML DISP.SYRIN IV ONE (22:00)
[2019-10-06 22:06] LABS: BASOPHILS # (AUTO) 0.1 /CMM (0.0-0.2); BASOPHILS % (AUTO) 1.3 % (0.0-2.0); EOSINOPHILS % (AUTO) 1.4 % (0.0-6.0); HEMATOCRIT 39 % (39-51); HEMOGLOBIN 12.9 g/dL (13.5-17.5); LYMPHOCYTES # (AUTO) 2.4 /CMM (0.8-4.8); MEAN CORPUSCULAR HGB CONC 33 g/dl (31.0-36.0); MEAN CORPUSCULAR VOLUME 94 fL (80-96); MONOCYTES # (AUTO) 0.6 /CMM (0.1-1.30); NEUTROPHILS # (AUTO) 4.8 /CMM (1.8-8.9); NEUTROPHILS % (AUTO) 59.3 % (43.0-81.0); PLATELET COUNT (AUTO) 200 /CMM (150-450); RED BLOOD CELL COUNT(AUTO) 4.16 MIL/uL (4.5-6.0); WHITE BLOOD COUNT (AUTO) 8.1 K/uL (4.3-11.0)
[2019-10-06 22:28] LABS: ALBUMIN 3.5 g/dL (3.4-5.0); BILIRUBIN,DIRECT 0.1 mg/dL (0.0-0.2); BILIRUBIN,TOTAL 0.3 mg/dL (0.2-1.0); CALCIUM, SERUM 8.4 mg/dL (8.5-10.1); CREATININE 0.7 mg/dL (0.6-1.3); TOTAL PROTEIN, SERUM 7.5 g/dL (6.4-8.2)
--- NOTE | 2019-10-06 22:34 | NUR ---
URINE COLLECTED AND SENT TO LAB
[2019-10-06] MEDS ORDERED: IOHEXOL-300 100 ML VIAL IV ONE (22:55)
[2019-10-06] MEDS ORDERED: CT SWABBABLE VALVE TRANS SET 1 EA INFUS.SET MC ONE (22:56)
[2019-10-06 22:59] LABS: APPEARANCE,URINE Clear (CLEAR); BILIRUBIN,URINE Negative (NEGATIVE); BLOOD, URINE Negative Ery/uL (NEGATIVE); COLOR,URINE Yellow (YELLOW); KETONES,URINE Negative (NEGATIVE); LEUKOCYTE ESTERASE ,URINE Negative (NEGATIVE); NITRITE, URINE Negative (NEGATIVE); PROTEIN,URINE Negative (NEGATIVE); UGLUCOSE Negative (NEGATIVE); UROBILINOGEN,URINE 0.2 EU/dL (0.2)
[2019-10-07 00:35] VITALS: BP 121/74
--- NOTE | 2019-10-07 00:35 | NUR ---
Patient discharged to home in stable condition. Written and verbal after care instructions given. Patient verbalizes understanding of instruction.IV removed. Catheter intact and site benign. Pressure and 4x4 applied to site. No bleeding noted.
== END 2019-10-07 00:35 | disposition home or self-care (01) ==
LOC: ER 21:12
DX: K62.89 Other specified diseases of anus and rectum (principal); Z96.649 Presence of unspecified artificial hip joint; Z59.0 Homelessness
CPT/HCPCS: 36415; 74177; 80048; 80076; 81001; 85025; 85730; 96374; 96375; 99284; J2270; J2405; J7030; Q9967; 81000-TC